=== PATIENT | female | born 1935 | race Caucasian/White ===

== ENCOUNTER 2022-06-08 19:21 | Inpatient (IN) | payer MEDICARE ==
[2022-06-08] MEDS ORDERED: Sodium Chloride 0.9% 2.5 ML Syringe FLUSH PRN (19:33)
[2022-06-08] MEDS ORDERED: Sodium Chloride 0.9% 10 ML Syringe FLUSH PRN (19:33)
[2022-06-08] MEDS ORDERED: Albuterol/Ipratropium 3.0-0.5 MG/3 ML Neb Soln NEB STA ×2 (19:34→21:11)
[2022-06-08 20:26] LABS: CORONAVIRUS COVID-19 NAA NEGATIVE (NEGATIVE); INFLUENZA A NAA NEGATIVE (NEGATIVE); INFLUENZA B NAA NEGATIVE (NEGATIVE)
[2022-06-08 20:31] LABS: CARBON DIOXIDE,CO2 28.3 mmol/L (21.0-32.0); POTASSIUM,K 4.3 mmol/L (3.5-5.1)
[2022-06-08] MEDS ORDERED: Acetaminophen 500 MG Tab PO STA (20:53)
[2022-06-08] MEDS ORDERED: predniSONE 20 MG Tab PO STA ×2 (21:14)
[2022-06-08] MEDS ORDERED: Magnesium Oxide 400 MG Tab PO STA (21:17)
[2022-06-08] MEDS ORDERED: Acetaminophen 325 MG Tab PO PRN (23:17)
[2022-06-08] MEDS ORDERED: Ondansetron 4 MG/2 ML SDV IVPUSH PRN (23:17)
[2022-06-08] MEDS ORDERED: Albuterol/Ipratropium 3.0-0.5 MG/3 ML Neb Soln NEB PRN (23:17)
[2022-06-08] MEDS: Albuterol/Ipratropium 3.0-0.5 MG/3 ML Neb Soln NEB SCH (23:35)
[2022-06-08] MEDS: Enoxaparin 30 MG/0.3 ML Syringe SUBCUT SCH (23:35)
[2022-06-08] MEDS: methylPREDNISolone Sodium Succinate 40 MG/1 ML SDV IVPUSH SCH (23:35)
[2022-06-09] MEDS ORDERED: Ketorolac 30 MG/ML SDV IVPUSH ONE
[2022-06-09] MEDS: Albuterol/Ipratropium 3.0-0.5 MG/3 ML Neb Soln NEB SCH ×4 (02:11→14:55)
[2022-06-09] MEDS: methylPREDNISolone Sodium Succinate 40 MG/1 ML SDV IVPUSH SCH ×3 (06:30→23:04)
[2022-06-09] MEDS: Albuterol/Ipratropium 3.0-0.5 MG/3 ML Neb Soln NEB PRN (17:19)
[2022-06-09] MEDS: Enoxaparin 30 MG/0.3 ML Syringe SUBCUT SCH (23:03)
[2022-06-10] MEDS: methylPREDNISolone Sodium Succinate 40 MG/1 ML SDV IVPUSH SCH ×3 (06:31→23:48)
[2022-06-10 07:21] LABS: CARBON DIOXIDE,CO2 29.5 mmol/L (21.0-32.0); POTASSIUM,K 4.6 mmol/L (3.5-5.1)
[2022-06-10] MEDS ORDERED: Magnesium Oxide 400 MG Tab PO ONE (07:28)
[2022-06-10] MEDS: atorvaSTATin 20 MG Tab PO SCH (08:33)
[2022-06-10] MEDS: Enoxaparin 30 MG/0.3 ML Syringe SUBCUT SCH (23:48)
[2022-06-11] MEDS: methylPREDNISolone Sodium Succinate 40 MG/1 ML SDV IVPUSH SCH ×3 (06:33→22:34)
[2022-06-11 06:53] LABS: CARBON DIOXIDE,CO2 33.8 mmol/L (21.0-32.0); POTASSIUM,K 4.9 mmol/L (3.5-5.1)
[2022-06-11] MEDS: atorvaSTATin 20 MG Tab PO SCH (08:00)
[2022-06-11] MEDS: Albuterol/Ipratropium 3.0-0.5 MG/3 ML Neb Soln NEB SCH ×2 (09:10→16:00)
[2022-06-11] MEDS: Albuterol/Ipratropium 3.0-0.5 MG/3 ML Neb Soln NEB PRN (19:17)
[2022-06-11] MEDS: Enoxaparin 30 MG/0.3 ML Syringe SUBCUT SCH (22:33)
[2022-06-12] MEDS: methylPREDNISolone Sodium Succinate 40 MG/1 ML SDV IVPUSH SCH (06:33)
[2022-06-12 07:04] LABS: CARBON DIOXIDE,CO2 33.3 mmol/L (21.0-32.0); POTASSIUM,K 4.3 mmol/L (3.5-5.1)
[2022-06-12] MEDS: atorvaSTATin 20 MG Tab PO SCH (08:45)
[2022-06-12] MEDS ORDERED: Enoxaparin 40 MG/0.4 ML Syringe SUBCUT SCH (22:00)
== END 2022-06-12 18:50 | disposition home or self-care (01) | DRG 189 ==
LOC: MW.ED 19:21 → MW.MS 22:41
PROVIDERS: ADMIT Student in an Organized Health Care Education/Training Program; ATTEND Student in an Organized Health Care Education/Training Program
DX: J96.01 Acute respiratory failure with hypoxia (principal); J96.91 Respiratory failure, unspecified with hypoxia; J44.1 Chronic obstructive pulmonary disease with (acute) exacerbation; D47.2 Monoclonal gammopathy; M19.90 Unspecified osteoarthritis, unspecified site; F17.210 Nicotine dependence, cigarettes, uncomplicated; Z20.822 Contact with and (suspected) exposure to COVID-19; Z79.52 Long term (current) use of systemic steroids; Z79.899 Other long term (current) drug therapy; Z88.5 Allergy status to narcotic agent; E83.42 Hypomagnesemia
CPT/HCPCS: 0240U; 36415; 71045; 80048; 80053; 83735; 84100; 84484; 85025; 87070; 87205; 93005; 94640; 99285; 93010; 99221; 99231; 99239; A9270-GY; J1650; J1885; J2920; J3490; J7620-GY